=== PATIENT | male | born 1945 | race Caucasian/White ===

== ENCOUNTER 2016-08-27 10:42 | Emergency (ER) | payer OTHER ==
[~2016-08-27] VITALS: Ht 175.3 cm; Wt 85.7 kg
--- NOTE | 2016-08-27 10:47 | ED GENERAL ADULT ---
History of Present Illness General Chief Complaint: Abdominal Pain/Flank Pain Stated Complaint: ABD PAIN Source: patient Exam Limitations: no limitations Vital Signs & Intake/Output Vital Signs & Intake/Output Vital Signs Date Time Temp Pulse Resp B/P Pulse O2 O2 Flow FiO2 Ox Delivery Rate 08/27 1554 96.9 95 18 137/93 96 Room Air 08/27 1336 97.9 81 18 139/85 96 08/27 1045 96.8 94 16 138/94 96 Room Air Allergies Coded Allergies: Penicillins (Severe, RASH 08/27/16) Reconcile Medications Ascorbate Calcium (Vitamin C) 500 MG TABLET 1 TAB PO DAILY SUPPLEMENT ( Reported) Multivitamin (Daily Multiple Vitamin) 1 EACH TABLET 1 TAB PO DAILY SUPPLEMENT (Reported) [place]-3 Fatty Acids/Fish Oil (Fish Oil 1,000 MG Capsule) 340 MG-1,000 MG CAPSULE 1 CAP PO DAILY SUPPLEMENT (Reported) Pravastatin Sodium 40 MG TABLET 1 TAB PO QPM CHOLESTEROL (Reported) Triage Nurses Notes Reviewed? yes Onset: Abrupt Duration: day(s): Timing: recent history HPI: 08/27/16 12 PM This is a 62-year-old man who presents to the emergency department for right sided mid- abdominal pain. The patient states that he has a history of diverticulitis and is usually on the right side. He says that he was shoveling and doing things and may have injured his right upper flank. This was approximately 10 days ago now he's having ongoing pain. He says that he did call his primary care doctor, Dr. Quintanilla. He did take Bentyl, he was put on Cipro and Flagyl and only has minimal relief. He has no diarrhea or vomiting but does admit to nausea. The onset of the symptoms were abrupt, the duration has been approximately 10 days, the severity is significant; as his symptoms required him to come to the emergency department for care. He has a past medical history of diverticulitis. Past surgical history for tonsillectomy. He has an allergy to penicillin. He does not smoke. He occasionally drinks. He does have associated nausea. He says that he also noticed a bulge in the middle of his abdomen that he never noticed before. On physical exam he does have some minimal right periumbilical tenderness, no rebound or guarding. Heart is regular lungs are clear. He does have a reducible anterior ventral hernia Past History Travel History Traveled to [place] past 21 day No Medical History Any Pertinent Medical History? see below for history Neurological: NONE EENT: NONE Cardiovascular: HIGH CHOLESTEROL Respiratory: NONE Gastrointestinal: diverticulitis Hepatic: NONE Renal: NONE Musculoskeletal: NONE Psychiatric: NONE Endocrine: NONE Surgical History Surgical History: non-contributory Psychosocial History What is your primary language Croatian Tobacco Use: Never used Family History Hx Contributory? No Review of Systems Review of Systems Constitutional: Denies: fever. EENTM: Denies: visual changes. Respiratory: Denies: short of breath. Cardiovascular: Denies: chest pain. GI: Reports: see HPI, abdominal pain. Genitourinary: Reports: no symptoms. Musculoskeletal: Reports: no symptoms. Skin: Reports: no symptoms. Neurological/Psychological: Reports: no symptoms. Hematologic/Endocrine: Reports: no symptoms. Physical Exam Physical Exam General Appearance: alert, awake, anxious, mild distress Head: atraumatic, normal appearance Eyes: Bilateral: normal appearance, PERRL, EOMI. Ears, Nose, Throat: normal pharynx, normal ENT inspection Neck: normal inspection, supple, full range of motion Respiratory: normal breath sounds, chest non-tender, no respiratory distress Cardiovascular: regular rate/rhythm Peripheral Pulses: 4+ radial (R), 4+ radial (L) Gastrointestinal: soft, mild right-sided periumbilical tenderness, reducible ventral hernia Back: normal inspection, normal range of motion Extremities: normal inspection, normal range of motion, no edema Neurologic/Psych: no motor/sensory deficits, awake, alert, oriented x 3 Skin: intact, normal color, warm/dry Core Measures ACS in differential dx? No CVA/TIA Diagnosis: No Severe Sepsis Present: No Septic Shock Present: No Progress Differential Diagnoses I considered the following diagnoses in my evaluation of the patient: [ Cholecystitis, diverticulitis, appendicitis, irritable bowel disease ischemic colitis, aortic dissection, aortic aneurysm] Plan of Care: Orders Procedure Date/time Status URINALYSIS 08/27 1141 Complete COMPREHENSIVE METABOLIC PANEL 08/27 1141 Complete CBC WITHOUT DIFFERENTIAL 08/27 1141 Complete Laboratory Tests 08/27/16 1315: Urine Color YEL, Urine Clarity CLEAR, Urine pH 6.0, Ur Specific [place] 1.020, Urine Protein NEG, Urine Ketones 15 H, Urine Nitrite NEG, Urine Bilirubin NEG, Urine Urobilinogen 0.2, Ur Leukocyte Esterase NEG, Ur Microscopic EXAM NOT REQUIRED, Urine Hemoglobin NEG, Urine Glucose NEG 08/27/16 1215: Anion Gap 8, Estimated GFR > 60, BUN/Creatinine Ratio 15.0, Glucose 84, Calcium 9.5, Total Bilirubin 0.8, AST 31, ALT 43, Alkaline Phosphatase 71, Total Protein 6.3, Albumin 3.8, Globulin 2.5, Albumin/Globulin Ratio 1.5, CBC w Diff NO MAN DIFF REQ, RBC 5.38, MCV 87.8, MCH 29.4, RDW 13.0, MPV 8.3, Gran % 71.6, Lymphocytes % 18.1 L, Monocytes % 7.7, Eosinophils % 2.4, Basophils % 0.2, Absolute Granulocytes 6.2, Absolute Lymphocytes 1.6, Absolute Monocytes 0.7 H, Absolute Eosinophils 0.2, Absolute Basophils 0, PUBS MCHC 33.5 Initial ED EKG: none Departure Departure Disposition: HOME OR SELF CARE Condition: Stable Clinical Impression Primary Impression: Flank pain Referrals: NELLI CARRASQUILLO,NEGRO Bianchi (PCP/Family) Departure Forms: Customer Survey General Discharge Information Comments CT unremarkable, pain is minimal. Labs are unremarkable. 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 PATIENT: ENOCH GILLESPIE PRESENT AGE: 70 PATIENT ACCOUNT NO: [id number] : 47 LOCATION: [facility] ORDERING PHYSICIAN: MAIKEL OSHEA DO SERVICE DATE: 08/27/16-1199 EXAM TYPE: CAT - CT ABD & PELVIS W IV CONTRAST EXAMINATION: CT ABDOMEN AND PELVIS WITH CONTRAST CLINICAL INFORMATION: Right upper and lower quadrant pain. COMPARISON: None TECHNIQUE: Multidetector volumetric imaging was performed of the abdomen and pelvis after the uneventful IV administration of 95 mL of Optiray 320 intravenous contrast. Sagittal and coronal reformatted images were obtained on the technologist's workstation. DLP: 537 mGy-cm FINDINGS: The lung bases are clear and unremarkable. There is pancolonic diverticulosis most numerous throughout the sigmoid colon which is redundant looping into the right lower quadrant before passing to the left and joining the descending colon. Otherwise the bowel loops are unremarkable including a normal-appearing appendix without evidence of an acute intra-abdominal process identified on this examination. No significant anterior abdominal wall hernias are identified. The liver, spleen, pancreas, gallbladder, adrenal glands, kidneys, ureters, and urinary bladder appear unremarkable. The prostate appears mildly enlarged. There is no retroperitoneal or mesenteric lymphadenopathy. There is no intraperitoneal free fluid. Osseous structures demonstrate no significant-appearing sclerotic or lucent lesions. IMPRESSION: 1. Colonic diverticulosis without evidence of an acute intra-abdominal process. 2. Mildly enlarged prostate gland. 3. Otherwise largely unremarkable examination. DICTATED BY: JIM STRATTON MD DATE/TIME DICTATED:08/27/161344 SAT MATH TUTOR:RADHA DATE/TIME TRANSCRIBED:08/27/161344 CONFIDENTIAL, DO NOT COPY WITHOUT APPROPRIATE AUTHORIZATION. <Electronically signed in Other Vendor System> SIGNED BY: JIM STRATTON MD [id number] Critical Care Note Critical Care Note Critical Care Time: non-applicable
[2016-08-27] MEDS ORDERED: PRAVASTATIN SOD40 M2 PO (11:36)
[2016-08-27] MEDS ORDERED: DAILY MULTIPLE1 EACH PO (11:37)
[2016-08-27] MEDS ORDERED: VITAMIN C500 M6 PO (11:37)
[2016-08-27] MEDS ORDERED: FISH OIL 1,0001 EACH PO (11:37)
[2016-08-27 12:34] LABS: ABSOLUTE BASOPHIL COUNT 0 /CUMM (0.0-0.2); ABSOLUTE EOSINOPHIL COUNT 0.2 /CUMM (0.0-0.7); ABSOLUTE GRANULOCYTE CT 6.2 /CUMM (1.4-6.5); ABSOLUTE LYMPH COUNT 1.6 /CUMM (1.2-3.4); ABSOLUTE MONOCYTE COUNT 0.7 /CUMM (0.10-0.60); BASOPHIL % 0.2 % (0.0-2.0); EOSINOPHIL % 2.4 % (0-5); GRANULOCYTE % 71.6 % (42.2-75.2); HEMATOCRIT 47.3 % (42-52); MEAN CORPUSCULAR HGB 29.4 PG (27.0-31.0); MEAN CORPUSCULAR HGB CONC 33.5 G/DL (33.0-37.0); MEAN CORPUSCULAR VOLUME 87.8 FL (80.0-94.0); MEAN PLATELET VOLUME 8.3 FL (7.4-10.4); PLATELET COUNT 218 /CUMM (130-400); RED BLOOD CELL CT 5.38 /CUMM (4.70-6.10); WHITE BLOOD CELL COUNT 8.7 /CUMM (4.8-10.8)
--- NOTE | 2016-08-27 14:53 | CT SCAN REPORT ---
EXAMINATION: CT ABDOMEN AND PELVIS WITH CONTRAST CLINICAL INFORMATION: Right upper and lower quadrant pain. COMPARISON: None TECHNIQUE: Multidetector volumetric imaging was performed of the abdomen and pelvis after the uneventful IV administration of 95 mL of Optiray 320 intravenous contrast. Sagittal and coronal reformatted images were obtained on the technologist's workstation. DLP: 537 mGy-cm FINDINGS: The lung bases are clear and unremarkable. There is pancolonic diverticulosis most numerous throughout the sigmoid colon which is redundant looping into the right lower quadrant before passing to the left and joining the descending colon. Otherwise the bowel loops are unremarkable including a normal-appearing appendix without evidence of an acute intra-abdominal process identified on this examination. No significant anterior abdominal wall hernias are identified. The liver, spleen, pancreas, gallbladder, adrenal glands, kidneys, ureters, and urinary bladder appear unremarkable. The prostate appears mildly enlarged. There is no retroperitoneal or mesenteric lymphadenopathy. There is no intraperitoneal free fluid. Osseous structures demonstrate no significant-appearing sclerotic or lucent lesions. IMPRESSION: 1. Colonic diverticulosis without evidence of an acute intra-abdominal process. 2. Mildly enlarged prostate gland. 3. Otherwise largely unremarkable examination.
[2016-08-27 15:54] VITALS: BP 137/93
== END 2016-08-27 15:56 ==
LOC: ERH 10:42
PROVIDERS: Emergency Medicine
DX: R10.9 Unspecified abdominal pain (principal)
CPT/HCPCS: 74177; 81003; 96360; 96361